=== PATIENT | female | born 1980 | race Caucasian/White ===

== ENCOUNTER → 2016-11-26 | Outpatient (CLI) | payer OTHER ==
[~2016-11-26] MED LIST: BCPILLS PO; CLX20 PO; FLNCV PO; PRENTAB26 PO; RISP3TAB12 PO
[2016-11-26 17:46] LABS: BASO % 0.3 %; BASO ABS # 0.02 K/uL (0-0.2); COMPLETE YES; HEMATOCRIT 37.7 % (37-47); IG% 0.3 %; LYMPH % 31.3 %; MEAN CELL VOLUME 86.3 fL (80-100); MEAN CORPUSCULAR HEMOGLOBIN 28.6 pg (25-34); MEAN CORPUSCULAR HGB CONC 33.2 g/dl (32-36); MEAN PLATELET VOLUME 10.3 fL (7.4-10.4); MONO % 9.8 %; NEUT % 57.3 %; PLATELET COUNT 205 K/uL (130-400); RED BLOOD COUNT 4.37 M/uL (4.2-5.4); WHITE BLOOD COUNT 7.36 K/uL (4.8-10.8)
[2016-11-26 17:53] LABS: ALT/SGPT 21 U/L (12-78); BLOOD UREA NITROGEN 14 mg/dl (7-18); BUN/CREATININE RATIO 14.8 (10-20); CALCIUM 8.7 mg/dl (8.5-10.1); CARBON DIOXIDE 26 mmol/L (21-32); CHLORIDE 104 mmol/L (98-107); CREATININE 0.93 mg/dl (0.60-1.20); GLUCOSE 95 mg/dl (70-99); SODIUM 138 mmol/L (136-145)
[2016-11-26 18:04] LABS: ALB/GLOB RATIO 0.8 (0.9-2); ALKALINE PHOSPHATASE 59 U/L (45-117); AST/SGOT 18 U/L (15-37)
== END | disposition home or self-care (01) ==
LOC: C.LABPVFM 15:27
PROVIDERS: ATTEND Psychiatry & Neurology Neurology
DX: G43.909 Migraine, unspecified, not intractable, without status migrainosus (principal)

== ENCOUNTER 2017-04-20 09:43 | Emergency (ER) | payer OTHER ==
[~2017-04-20] VITALS: Ht 165.1 cm; Wt 87.9 kg
[~2017-04-20 09:43] MED LIST changes: -PRENTAB26 PO
[2017-04-20 09:45] VITALS: TEMP 37.6; Ht 165.1 cm; Wt 87.9 kg
[2017-04-20] MEDS ORDERED: SODIUM CHLORIDE 0.9% 1000ML 1,000 ML IV STA (10:10)
[2017-04-20] MEDS ORDERED: PRENTAB26 PO (10:41)
[2017-04-20 11:03] LABS: BASO % 0.2 %; BASO ABS # 0.01 K/uL (0-0.2); COMPLETE YES; EOS % 0.8 %; HEMATOCRIT 41.4 % (37-47); IG% 0.2 %; LYMPH % 17.7 %; LYMPH ABS # 1.15 K/uL (1.2-3.4); MEAN CELL VOLUME 87.3 fL (80-100); MEAN CORPUSCULAR HEMOGLOBIN 27.6 pg (25-34); MEAN CORPUSCULAR HGB CONC 31.6 g/dl (32-36); MEAN PLATELET VOLUME 9.9 fL (7.4-10.4); MONO % 7.6 %; NEUT % 73.5 %; PLATELET COUNT 217 K/uL (130-400); RED BLOOD COUNT 4.74 M/uL (4.2-5.4); WHITE BLOOD COUNT 6.49 K/uL (4.8-10.8)
[2017-04-20 11:07] LABS: MANUAL MICROSCOPIC REQUIRED? YES; URINE APPEARANCE TURBID (CLEAR); URINE BILIRUBIN NEG (NEG); URINE COLOR RED; URINE NITRITE NEG (NEG); URINE PH 6.5 (4.5-7.5); URINE SPECIFIC GRAVITY 1.025 (1.000-1.030); UROBILINOGEN NEG (NEG)
[2017-04-20 11:12] LABS: INR 0.9 (0.9-1.1); PARTIAL THROMBOPLASTIN RATIO 1.1; PROTHROMBIN TIME (PATIENT) 10.1 SECONDS (9.0-12.0)
[2017-04-20 11:13] LABS: REVIEW REQ? NO
[2017-04-20 11:17] LABS: URINE BACTERIA 1+ (NEG); URINE RBC >30 /hpf (0-4); URINE WBC >30 /hpf (0-5)
[2017-04-20 11:23] LABS: BUN/CREATININE RATIO 11.7 (10-20); CALCIUM 8.4 mg/dl (8.5-10.1); CREATININE 0.86 mg/dl (0.60-1.20); POTASSIUM 4.1 mmol/L (3.5-5.1)
[2017-04-20 11:26] LABS: ALB/GLOB RATIO 1.1 (0.9-2)
--- NOTE | 2017-04-20 11:52 | DIAGNOSTIC IMAGING REPORT ---
ECTOPIC ULTRASOUND CLINICAL HISTORY: EVAL IUP, vaginal BLEEDING COMPARISON STUDY: None. FINDINGS: Transabdominal and transvaginal scanning of the pelvis was performed. The uterus is normal in size and shape. Endometrial stripe is normal in thickness measuring 6 mm. No evidence for an intrauterine gestational sac. The ovaries are normal in size and demonstrate normal color flow. No adnexal masses. No pelvic free fluid. There are few small follicles/cysts within the ovaries. Thickening and heterogeneous appearance to the cervical canal which measures up to 1 cm. Small cystic focus either within or adjacent to the cervical canal. IMPRESSION: 1. No evidence for an intrauterine gestational sac. In the setting of a positive test this could represent an early intrauterine , nonvisualized ectopic , or spontaneous . 2. Thickening of the cervical canal which appears to be heterogeneous and measures up to 1 cm. There is a small cystic focus either within or adjacent to the cervical canal. This does not appear to represent a gestational sac. 3. Normal ovaries. Electronically signed by: Bret Jones M.D. 04/20/2017 11:50 AM Dictated Date/Time: 04/20/2017 11:44 AM
--- NOTE | 2017-04-20 12:23 | EMERGENCY ROOM VISIT NOTE ---
ED Visit Note First contact with patient: 09:55 CHIEF COMPLAINT: Vaginal bleeding since this morning HISTORY OF PRESENT ILLNESS: Patient is a roughly 5 week 36-year- old white female who presents emergency Department for evaluation of vaginal bleeding that started acutely this morning. Last menstrual period was 2016. She has had several positive home test. She is scheduled to see [facility] [employer]CHNICIAN on 05/06 for her new OB appointment. She reports she was feeling well and in her usual state of health until this morning when she woke up. She had some pelvic pressure and the sense that she needed to urinate, when she got to the bathroom, she passed pedro, bright red blood with clots. She notes some suprapubic cramping radiating through to her back. She rates her discomfort a 5/10. She has not yet seen an OB, nor had any laboratory testing or ultrasound to confirm intrauterine . She does not feel dizzy, weak, or faint. There has been no sweating or loss of consciousness. She denies trauma to the abdomen, recent illnesses, or fever. REVIEW OF SYSTEMS: Review of systems as per HPI. All other systems reviewed were negative. 10 systems reviewed. PMH: Electronic medical records are reviewed and summarized as above/below. See Problem List. SOCIAL HISTORY: Patient lives at home with her and son. Employed. She does not smoke.. PHYSICAL EXAM: Vital Signs: Reviewed Nurse's notes. CONSTITUTIONAL: Patient is a well-appearing 36-year-old white female who is awake and alert and in no acute distress. EYES: Pupils equal, round, reactive to light and accommodation. EOMs intact without nystagmus. Sclera are anicteric. ENT: Tympanic membranes intact, with normal landmarks. External canals are clear. Oral and nasopharynx are clear. Mucous membranes are moist, no lesions , tongue and gums appear normal. NECK: Supple without lymphadenopathy. CARDIOVASCULAR: Regular rate and rhythm. Peripheral pulses easily palpable. RESPIRATORY: Breath sounds equal and clear to auscultation without wheezes, rales, or rhonchi heard. Full and equal chest expansion without accessory muscle use or retractions. ABDOMEN: Bowel sounds are present. Abdomen is soft, nondistended, mildly tender in the suprapubic region, no guarding or rebound. INTEGUMENTARY: No lesions or rash, normal skin turgor. EMERGENCY DEPARTMENT COURSE: The patient was seen and evaluated as above. Old records are reviewed. Her blood type is O+ from prior records. IV lock was initiated. She was hydrated with normal saline solution. CBC with differential , coags, CMP and a quantitative hCG were collected. Urinalysis was performed. Pelvic ultrasound was obtained to evaluate for intrauterine . Laboratory studies noted a normal H&H of 13 and 41 normal platelet count, PT/ PTT and INR are normal. Chemistries are without significant abnormality. Liver functions are normal. Quantitative hCG is 15. Urinalysis is grossly contaminated with blood. Given lack of urinary symptoms and contaminated urine , further analysis was not performed. Pelvic ultrasound noted no evidence for an intrauterine gestational sac, differentials considered could be early intrauterine , nonvisualized ectopic or spontaneous . Thickening of the cervical canal which appears to be heterogeneous and measures up to 1 cm there is a small cystic focus either within or adjacent to the cervical canal, this does not appear to represent a gestational sac. Ovarian were normal. Given the patient's hCG level and ultrasound findings, I suspect the patient has suffered a spontaneous . Differential diagnoses also considered included , ectopic , ovarian cyst, coagulopathy, among others. Conservative care measures were discussed. Patient continued to report ongoing bleeding in the emergency department after she returned from ultrasound. Bleeding and ectopic precautions were discussed. She was advised to contact [employer]CHNICIAN by phone on Saturday to arrange a follow-up appointment, she may need to have her hCG level trended to confirm diagnosis. Medication reconciliation: I attest that I have personally reviewed the patient' s current medication list. Blood pressure screening : Patient was found to have normal blood pressure on screening and does not require follow-up. ECTOPIC ULTRASOUND CLINICAL HISTORY: EVAL IUP, vaginal BLEEDING COMPARISON STUDY: None. FINDINGS: Transabdominal and transvaginal scanning of the pelvis was performed. The uterus is normal in size and shape. Endometrial stripe is normal in thickness measuring 6 mm. No evidence for an intrauterine gestational sac. The ovaries are normal in size and demonstrate normal color flow. No adnexal masses. No pelvic free fluid. There are few small follicles/cysts within the ovaries. Thickening and heterogeneous appearance to the cervical canal which measures up to 1 cm. Small cystic focus either within or adjacent to the cervical canal. IMPRESSION: 1. No evidence for an intrauterine gestational sac. In the setting of a positive test this could represent an early intrauterine , nonvisualized ectopic , or spontaneous . 2. Thickening of the cervical canal which appears to be heterogeneous and measures up to 1 cm. There is a small cystic focus either within or adjacent to the cervical canal. This does not appear to represent a gestational sac. 3. Normal ovaries. Problem List Medical Problems: (1) Anxiety State Nos Status: Chronic (2) Depressive Disorder-Mod Status: Chronic Current/Historical Medications Scheduled Multivit/Min/Iron/Fol Ac/Pren ( Vitamin), 1 TAB PO DAILY Allergies Coded Allergies: No Known Allergies (Verified , 04/20/17) Vital Signs Date Time Temp Pulse Resp B/P (MAP) Pulse Ox O2 Delivery O2 Flow Rate FiO2 04/20/17 12:49 86 18 134/76 100 04/20/17 11:22 88 16 138/82 99 Room Air 04/20/17 09:45 37.6 97 20 139/89 100 Room Air Laboratory Results 04/20/17 10:30 Red Blood Count 4.74, Mean Corpuscular Volume 87.3, Mean Corpuscular Hemoglobin 27.6, Mean Corpuscular Hemoglobin Concent 31.6, Mean Platelet Volume 9.9, Neutrophils (%) (Auto) 73.5, Lymphocytes (%) (Auto) 17.7, Monocytes (%) (Auto) 7.6, Eosinophils (%) (Auto) 0.8, Basophils (%) (Auto) 0.2, Neutrophils # (Auto) 4.78, Lymphocytes # (Auto) 1.15, Monocytes # (Auto) 0.49, Eosinophils # (Auto) 0.05, Basophils # (Auto) 0.01 04/20/17 10:30 Test 04/20/17 10:30 04/20/17 10:36 White Blood Count 6.49 K/uL (4.8-10.8) Red Blood Count 4.74 M/uL (4.2-5.4) Hemoglobin 13.1 g/dL (12.0-16.0) Hematocrit 41.4 % (37-47) Mean Corpuscular Volume 87.3 fL (80-100) Mean Corpuscular Hemoglobin 27.6 pg (25-34) Mean Corpuscular Hemoglobin Concent 31.6 g/dl (32-36) Platelet Count 217 K/uL (130-400) Mean Platelet Volume 9.9 fL (7.4-10.4) Neutrophils (%) (Auto) 73.5 % Lymphocytes (%) (Auto) 17.7 % Monocytes (%) (Auto) 7.6 % Eosinophils (%) (Auto) 0.8 % Basophils (%) (Auto) 0.2 % Neutrophils # (Auto) 4.78 K/uL (1.4-6.5) Lymphocytes # (Auto) 1.15 K/uL (1.2-3.4) Monocytes # (Auto) 0.49 K/uL (0.11-0.59) Eosinophils # (Auto) 0.05 K/uL (0-0.5) Basophils # (Auto) 0.01 K/uL (0-0.2) RDW Standard Deviation 42.2 fL (36.4-46.3) RDW Coefficient of Variation 13.1 % (11.5-14.5) Immature Granulocyte % (Auto) 0.2 % Immature Granulocyte # (Auto) 0.01 K/uL (0.00-0.02) Prothrombin Time 10.1 SECONDS (9.0-12.0) Prothromb Time International Ratio 0.9 (0.9-1.1) Activated Partial Thromboplast Time 28.0 SECONDS (21.0-31.0) Partial Thromboplastin Ratio 1.1 Anion Gap 4.0 mmol/L (3-11) Est Creatinine Clear Calc Drug Dose 100.9 ml/min Estimated GFR () 102.2 Estimated GFR (Non- 88.1 BUN/Creatinine Ratio 11.7 (10-20) Calcium Level 8.4 mg/dl (8.5-10.1) Total Bilirubin 0.5 mg/dl (0.2-1) Aspartate Amino Transf (AST/SGOT) 14 U/L (15-37) Alanine Aminotransferase (ALT/SGPT) 24 U/L (12-78) Alkaline Phosphatase 66 U/L (45-117) Total Protein 7.0 gm/dl (6.4-8.2) Albumin 3.7 gm/dl (3.4-5.0) Globulin 3.3 gm/dl (2.5-4.0) Albumin/Globulin Ratio 1.1 (0.9-2) Human Chorionic Gonadotropin, Quant 15 mIU/mL Urine Color RED Urine Appearance TURBID (CLEAR) Urine pH 6.5 (4.5-7.5) Urine Specific [place] 1.025 (1.000-1.030) Urine Protein 3+ (NEG) Urine Glucose (UA) NEG (NEG) Urine Ketones TRACE (NEG) Urine Occult Blood 3+ (NEG) Urine Nitrite NEG (NEG) Urine Bilirubin NEG (NEG) Urine Urobilinogen NEG (NEG) Urine Leukocyte Esterase SMALL (NEG) Urine RBC >30 /hpf (0-4) Urine WBC >30 /hpf (0-5) Urine Epithelial Cells 10-20 /lpf (0-5) Urine Bacteria 1+ (NEG) Medications Administered Medications (Trade) Dose Ordered Sig/Kristina Route Start Time Stop Time Status Last Admin Dose Admin Sodium Chloride 1,000 ml @ 250 mls/hr Q4H STAT IV 04/20/17 10:10 04/20/17 12:59 DC 04/20/17 10:32 250 MLS/HR Departure Information Impression Primary Impression: Spontaneous Referrals Rebecca Rodrigues D.ORon (PCP) Patient Instructions My [facility] Additional Instructions Ibuprofen(Motrin, Advil) may be used for fever or pain. Use 600mg every six hours as needed. Take with food. Avoid using more than 2400mg in a 24 hour period. Do not use 2400mg per day for more than three consecutive days without physician direction. Prolonged inappropriate use can lead to stomach upset or ulcers. (AND/OR) Acetaminophen(Tylenol) may be used for fever or pain. Use 1000mg every six hours as needed. Avoid using more than 3000mg in a 24 hour period. Rest and avoid any heavy lifting or strenuous activity. Strict vaginal rest-no tampons, douching or intercourse. Drink plenty of fluids. Diet as tolerated. Follow up with [employer] TECHNICIAN by phone on Saturday to notify them of your ED visit and to set up a follow-up appointment. Return to the ED for worsening pain, heavier bleeding (soaking a pad in less than one hour, passing clots larger than your fist), lightheadedness, dizziness , passing out, worsening of your condition or as needed.
[2017-04-20 12:49] VITALS: BP 134/76; PULSE 86; O2SAT 100
== END 2017-04-20 12:50 | disposition home or self-care (01) ==
LOC: C.EDB 09:44
DX: O03.9 Complete or unspecified spontaneous abortion without complication (principal); F41.9 Anxiety disorder, unspecified; F32.9 Major depressive disorder, single episode, unspecified

== ENCOUNTER → 2017-04-26 | Outpatient (CLI) | payer OTHER ==
[~2017-04-26] MED LIST changes: -BCPILLS PO; -CLX20 PO; -FLNCV PO; +PRENTAB26 PO; -RISP3TAB12 PO
== END | disposition home or self-care (01) ==
LOC: C.LABPVFM 13:28
PROVIDERS: ATTEND Obstetrics & Gynecology
DX: O03.9 Complete or unspecified spontaneous abortion without complication (principal)

== ENCOUNTER → 2017-06-13 | Outpatient (CLI) | payer OTHER | END | disposition home or self-care (01) | LOC: C.PAPS 11:45 | PROVIDERS: ATTEND Obstetrics & Gynecology | DX: Z87.448 Personal history of other diseases of urinary system (principal) ==

== ENCOUNTER → 2017-07-17 | Outpatient (CLI) | payer OTHER ==
[2017-07-17 10:04] LABS: BASO % 0.1 %; BASO ABS # 0.01 K/uL (0-0.2); COMPLETE YES; EOS % 0.3 %; HEMATOCRIT 37.9 % (37-47); IG% 0.3 %; LYMPH % 13.5 %; LYMPH ABS # 1.53 K/uL (1.2-3.4); MEAN CELL VOLUME 86.9 fL (80-100); MEAN CORPUSCULAR HEMOGLOBIN 28.7 pg (25-34); MEAN PLATELET VOLUME 9.9 fL (7.4-10.4); MONO % 6.5 %; NEUT % 79.3 %; PLATELET COUNT 241 K/uL (130-400); RED BLOOD COUNT 4.36 M/uL (4.2-5.4); WHITE BLOOD COUNT 11.31 K/uL (4.8-10.8)
[2017-07-18 13:39] LABS: CHLAMYDIA TRACH RNA*** NOT DETECTED (NOT DETECTED); GC (NEIS GONORRHOEAE)RNA** NOT DETECTED (NOT DETECTED)
== END | disposition home or self-care (01) ==
LOC: C.LAB1850 08:57
PROVIDERS: ATTEND Obstetrics & Gynecology
DX: O09.521 Supervision of elderly multigravida, first trimester (principal); Z3A.00 Weeks of gestation of pregnancy not specified

== ENCOUNTER → 2017-09-10 | Outpatient (CLI) | payer OTHER ==
[~2017-09-10] MED LIST changes: +MTR600X PO; +OXYC-57 PO
== END | disposition home or self-care (01) ==
LOC: C.LAB1850 09:58
PROVIDERS: ATTEND Obstetrics & Gynecology
DX: O09.522 Supervision of elderly multigravida, second trimester (principal); Z3A.16 16 weeks gestation of pregnancy

== ENCOUNTER → 2017-12-03 | Outpatient (CLI) | payer OTHER ==
[~2017-12-03] MED LIST changes: -MTR600X PO; -OXYC-57 PO
[2017-12-03 13:22] LABS: HEMATOCRIT 34.2 % (37-47); HEMOGLOBIN 11.4 g/dL (12.0-16.0)
== END | disposition home or self-care (01) ==
LOC: C.LAB1850 12:32
PROVIDERS: ATTEND Obstetrics & Gynecology
DX: O09.523 Supervision of elderly multigravida, third trimester (principal); Z3A.00 Weeks of gestation of pregnancy not specified